=== PATIENT | male | born 1990 | race Caucasian/White ===

== ENCOUNTER 2017-02-22 12:57 | Emergency (ER) | payer OTHER ==
[2017-02-22 13:06] VITALS: BP 154/98; PULSE 70; TEMP 98.6; BMI 23.0
--- NOTE | 2017-02-22 13:12 | PDOC ---
History of Present Illness - General Chief Complaint: Pain Stated Complaint: PAIN Time Seen by Provider: 02/22/17 13:11 History Source: Patient Exam Limitations: No Limitations - History of Present Illness Initial Comments: CHIEF COMPLAINT: 27 y/o afebrile male with no significant PMH c/o b/l foot pain for the past 6 days. HISTORY OF PRESENT ILLNESS: 7 days ago the patient began the [employer] and states he has been running and training every day, which is new for him. He states the morning after the first day of training he had pain along the back of his heels. Despite the pain he continues to train and run multiple miles daily. He has been taking Advil every day and icing the areas with little relief. He now cannot walk without limping. Vital signs on arrival are within normal limits. REVIEW OF SYSTEMS: GENERAL/CONSTITUTIONAL: No fever/chills. No weakness. No weight change. HEAD, EYES, EARS, NOSE AND THROAT: No change in vision. No ear pain or discharge. No sore throat. MUSCULOSKELETAL: +b/l foot/heel pain. No neck or back pain. SKIN: No rash or easy bruising. NEUROLOGIC: No headache, vertigo, loss of consciousness, or loss of sensation. PHYSICAL EXAM: VITAL_SIGNS: within normal limits GENERAL_APPEARANCE: alert, cooperative, obvious discomfort with ambulation. MENTAL_STATUS: speech clear, oriented X 3, responds appropriately to questions. NEURO: motor intact and sensory intact in injured extremity. EXTREMITIES: good pulse in injured extremities. Full unassisted flexion, extension, inversion and eversion of b/l feet and ankles. Pain reproduced with palpation of b/l achilles tendons, approximately 4cm proximal to heels. Negative luna's test b/l. No obvious bulging of achilles tendon b/l. No erythema, edema or ecchymosis. No pain with palpation of plantar fasciitis b/ l. No calf pain, swelling, erythema, warmth. SKIN: warm, dry, good color. Past History - Past Medical History Allergies/Adverse Reactions: Allergies Allergy/AdvReac Type Severity Reaction Status Date / Time No Known Allergies Allergy Verified 02/22/17 13:01 Home Medications: Ambulatory Orders NK [No Known Home Medication] 02/22/17 Other medical history: denies - Immunization History Immunization Up to Date: Yes - Psycho/Social/Smoking Cessation Hx Suicidal Ideation: No Smoking History: Never smoked Hx Alcohol Use: No Drug/Substance Use Hx: No Substance Use Type: Alcohol *Physical Exam - Vital Signs Last Vital Signs Temp Pulse Resp BP Pulse Ox 98.6 F 70 18 154/98 96 02/22/17 13:03 02/22/17 13:03 02/22/17 13:03 02/22/17 13:03 02/22/17 13:03 Medical Decision Making - Medical Decision Making A/P: 27 y/o afebrile male with b/l achilles tendinitis with possible micro tears. Informed the patient of the diagnosis and plan. Will wrap both feet in NEVIN bandages. Instructed him to take 600mg of advil every 6 hours with food, continue icing and stretching. Informed him that he would have to avoid activities that aggravate the problem (running, etc) until he follows up with an orthopedic doctor. The patient verbalizes understanding of all instructions, has no further questions and is awaiting discharge. *DC/Admit/Observation/Transfer Diagnosis at time of Disposition: Achilles tendinitis of both lower extremities - Discharge Dispostion Disposition: HOME Condition at time of disposition: Good - Referrals Referrals: Hermes Petit MD [Staff Physician] - - Patient Instructions Printed Discharge Instructions: DI for Achilles Tendinopathy Additional Instructions: Discharge Instructions: -Stretch your feet multiple times per day -Use NEVIN bandages for support -Take 600mg of Advil every 6 hours with food -Ice the affected areas multiple times per day -Rest your feet and avoid activities that bring on the pain (running) until you are seen by an Orthopedic doctor -Return to the ER with any worsening or concerning symptoms - Post Discharge Activity Work/School Note: Back to Work
== END 2017-02-22 14:10 | disposition home or self-care (01) ==
LOC: JERFT 12:57
DX: M76.62 Achilles tendinitis, left leg (principal); M76.61 Achilles tendinitis, right leg; X58.XXXA Exposure to other specified factors, initial encounter; Y93.02 Activity, running; Y92.89 Other specified places as the place of occurrence of the external cause; Y99.0 Civilian activity done for income or pay
CPT/HCPCS: 99281-25

== ENCOUNTER 2018-08-26 07:33 | Emergency (ER) | payer BC, OTHER ==
[2018-08-26 07:49] VITALS: BP 133/70; PULSE 120; TEMP 99.9; BMI 24.0
[2018-08-26] MEDS ORDERED: IBUPROFEN 400 MG TABLET (FP) PO ONE ×2 (08:21→08:24)
--- NOTE | 2018-08-26 08:21 | PDOC ---
History of Present Illness - General Chief Complaint: Cold Symptoms Stated Complaint: FLU LIKE SYMPTOMS Time Seen by Provider: 08/26/18 08:12 History Source: Patient Exam Limitations: No Limitations - History of Present Illness Initial Comments: 08/26/18 09:28 States onset of chills and fevers yesterday, headache and runny nose. Denies sore throat, denies cough. 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 Timing/Duration: reports: getting worse Severity: reports: mild, moderate Associated Symptoms: reports: fever/chills, nasal congestion. denies: sore throat Past History - Travel Traveled outside of the country in the last 30 days: No Close contact w/someone who was outside of country & ill: No - Past Medical History Allergies/Adverse Reactions: Allergies Allergy/AdvReac Type Severity Reaction Status Date / Time No Known Allergies Allergy Verified 08/26/18 07:48 Home Medications: Ambulatory Orders Oseltamivir Phosphate [Tamiflu -] 75 mg PO BID #10 capsule 08/26/18 COPD: No - Immunization History Immunization Up to Date: Yes - Suicide/Smoking/Psychosocial Hx Smoking History: Never smoked Have you smoked in the past 12 months: No Information on smoking cessation initiated: No Hx Alcohol Use: No Drug/Substance Use Hx: No Substance Use Type: Alcohol Review of Systems - Review of Systems Able to Perform ROS?: Yes Is the patient limited Welsh proficient: Yes Constitutional: Yes: Symptoms Reported, See HPI, Chills, Fever, Loss of Appetite , Malaise, Weakness HEENTM: Yes: Symptoms Reported, See HPI, Nose Congestion, Throat Pain Respiratory: Yes: See HPI. No: Symptoms reported, Cough, Wheezing All Other Systems: Reviewed and Negative *Physical Exam - Vital Signs Last Vital Signs Temp Pulse Resp BP Pulse Ox 99.9 F H 120 H 18 133/70 100 08/26/18 07:46 08/26/18 07:46 08/26/18 07:46 08/26/18 07:46 08/26/18 07:46 - Physical Exam Comments: 08/26/18 09:30 GENERAL: [The child is awake, alert, and appropriately interactive.] EYES: [The pupils are equal, round, and reactive to light, with clear, conjunctiva.but glassy] NOSE: [The nose with clear drainage EARS: [The ear canals and tympanic membranes are congested but landmarks easily visualed ] THROAT: [The oropharynx is clear with erythema, no exudates. The mucous membranes are moist.] NECK: [The neck is supple with mildly tender adenopathy, no menigemous] CHEST: [The lungs are coarse but clear without crackles, or wheezes.] HEART: [Heart is regular rhythm, with normal S1 and S2, no murmurs.] ABDOMEN: [The abdomen is soft and nontender with normal bowel sounds. There is no organomegaly and no mass. There is no guarding or rebound.] EXTREMITIES: [Extremities are normal.] NEURO: [Behavior is normal for age.cranky but easily,m Tone is normal.] SKIN: [Skin is unremarkable without rash or swelling. There is no bruising, and there are no other signs of injury.] General Appearance: Yes: Appropriately Dressed Moderate Sedation - Procedure Monitoring Vital Signs: Procedure Monitoring Vital Signs Temperature 99.9 F H 08/26/18 07:46 Pulse Rate 120 H 08/26/18 07:46 Respiratory Rate 18 08/26/18 07:46 Blood Pressure 133/70 08/26/18 07:46 O2 Sat by Pulse Oximetry (%) 100 08/26/18 07:46 Progress Note - Progress Note Progress Note: Influenza a positive testing, will treat with Tamiflu *DC/Admit/Observation/Transfer Diagnosis at time of Disposition: Influenza A - Discharge Dispostion Disposition: HOME Condition at time of disposition: Stable Decision to Admit order: No - Prescriptions Prescriptions: Oseltamivir Phosphate [Tamiflu -] 75 mg PO BID #10 capsule - Referrals - Patient Instructions Printed Discharge Instructions: DI for Influenza -- Adult Additional Instructions: Rest, drink lots of fluids: Teas, water, soups, Pedialyte Saltwater gargles Steamy showers/seem to face break up mucus Old-fashioned treatments help! Avoid contact with others until fevers and cough resolved as this is very contagious Lots of handwashing and good hygiene Continue [id number] medications for symptomatic relief Tylenol or Motrin for fever and pain Take all of Tamiflu as directed: 1 tab every 12 hours for 5 days Followup with private physician in one to 2 days as needed or if worsening Return to emergency department for worsened symptoms, fevers, dehydration Influenza takes between 5 and 7 days for resolution To not participate in any activity, work, or school until fevers and cough are gone for at least one day - Post Discharge Activity Forms/Work/School Notes: Back to Work
== END 2018-08-26 09:09 | disposition home or self-care (01) ==
LOC: JER 07:33 → JERFT 07:33
DX: J09.X2 Influenza due to identified novel influenza A virus with other respiratory manifestations (principal)
CPT/HCPCS: 87804; 99281-25

== ENCOUNTER 2019-09-15 15:39 | Emergency (ER) | payer OTHER, BC ==
[2019-09-15 16:08] VITALS: BP 107/70; PULSE 73; TEMP 98.1; BMI 23.7
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
== END 2019-09-15 16:21 | disposition home or self-care (01) ==
LOC: JERFT 15:39
DX: Z77.21 Contact with and (suspected) exposure to potentially hazardous body fluids (principal); Y35.811A Legal intervention involving manhandling, law enforcement official injured, initial encounter; Y93.89 Activity, other specified; Y92.89 Other specified places as the place of occurrence of the external cause; Y99.0 Civilian activity done for income or pay
CPT/HCPCS: 99282-25

== ENCOUNTER 2020-03-20 11:02 | Emergency (ER) | payer BC ==
[2020-03-20 11:29] VITALS: BP 128/84; PULSE 60; TEMP 97.3; BMI 23.0
--- NOTE | 2020-03-20 11:51 | PDOC ---
History of Present Illness - General Chief Complaint: Pain, Acute Stated Complaint: LEG CRAMP Time Seen by Provider: 03/20/20 11:40 History Source: Patient Exam Limitations: No Limitations - History of Present Illness Initial Comments: 03/20/20 11:45 HISTORY OF PRESENT ILLNESS: 30-year-old male denies medical history presents emergency department for evaluation of atraumatic left calf pain starting yesterday. Patient reports he applied tiger balm instructed out pain got minimally improved but when he woke up this morning pain was just as bad if not worse than yesterday. Patient is concerned that his father had pulmonary embolism from an undiagnosed DVT and is afraid that he may have a genetic component. He denies any immobility, recent travel, hormonal use. No recent travel or sick contacts. PAST MEDICAL HISTORY: Denies past medical history SURGICAL HISTORY: Denies ALLERGIES: No known drug allergies REVIEW OF SYSTEMS General/Constitutional: Denies fever or chills. Denies weakness, weight change. HEENT: Denies change in vision. Denies ear pain or discharge. Denies sore throat. Cardiovascular: Denies chest pain or shortness of breath. Respiratory: Denies cough, wheezing, or hemoptysis. Gastrointestinal: Denies nausea, vomiting, diarrhea or constipation. Denies rectal bleeding. Genitourinary: Denies dysuria, frequency, or change in urination. Musculoskeletal: See HPI Skin and breasts: Denies rash or easy bruising. Neurologic: Denies headache, vertigo, loss of consciousness, or loss of sensation. Psychiatric: Denies depression or anxiety. Endocrine: Denies increased thirst. Denies abnormal weight change. Hematologic/Lymphatic: Denies anemia, easy bleeding, or history of blood clots. Allergic/Immunologic: Denies hives or skin allergy. Denies latex allergy. PHYSICAL EXAM General Appearance: Well-appearing, appropriately dressed. No apparent distress, no intoxication. Vascular Pulses: Dorsalis-Pedis (R): 2+, Dorsalis-Pedis (L): 2+ Musculoskeletal/Extremities: Normal inspection. FROM of all extremities, normal capillary refill. Pelvis Stable. No CVA tenderness. No tenderness to extremities, pedal edema, swelling, erythema or deformity. Integumentary: Appropriate color, dry, warm. No cyanosis, erythema, jaundice or rash Neurologic: animal scientist II-XII intact. Fully oriented, alert. Appropriate mood/affect. Motor strength 5/5. No appreciable EOM palsy, facial droop or sensory deficit. Past History - Medical History Allergies/Adverse Reactions: Allergies Allergy/AdvReac Type Severity Reaction Status Date / Time No Known Allergies Allergy Verified 03/20/20 11:23 COPD: No - Immunization History Immunization Up to Date: Yes - Psycho-Social/Smoking History Smoking History: Never smoked Have you smoked in the past 12 months: No Number of Cigarettes Smoked Daily: 1 - Substance Abuse Hx (Audit-C & DAST Scrn) How often the patient has a drink containing alcohol: Monthly or less Score: In Men: 4 or > Positive; In Women: 3 or > Positive: 1 Screen Result (Pos requires Nsg. Audit-10AR): Negative In the last yr the pt used illegal drug/Rx for NonMed reason: No Score: Yes response is considered Positive: 0 Screen Result (Positive result requires Nsg. DAST-10): Negative *Physical Exam - Vital Signs Last Vital Signs Temp Pulse Resp BP Pulse Ox 97.3 F L 60 18 128/84 98 03/20/20 11:23 03/20/20 11:23 03/20/20 11:23 03/20/20 11:23 03/20/20 11:23 ED Treatment Course - RADIOLOGY Radiology Studies Ordered: Category Date Time Status DUPLEX VASCUL US-1 LEG [US] Stat Ultrasound 03/20/20 11:44 Ordered Medical Decision Making - Medical Decision Making 03/20/20 11:47 A/P: 30-year-old male with atraumatic left calf pain for 2 days Physical exam is grossly unremarkable Possible electrolyte abnormality but given family history of thromboemboli, duplex Dopplers have been ordered. Refusing pain medication at this time Reassess 03/20/20 12:25 Duplex Do[address] read by Dr. Shi: There is no evidence of deep vein thrombosis in the left lower extremity. No Ramos's cyst is identified within the popliteal fossa. Discharge home to follow-up with his primary doctor as needed I discussed the physical exam findings, ancillary test results and final diagnoses with the patient. I answered all of the patient's questions. The patient was satisfied with the care received and felt comfortable with the discharge plan and treatment plan. The patient will call their primary care physician within 24 hours to arrange follow-up and will return to the Emergency Department with any new, persistent or worsening symptoms. Portions of this note have been documented using voice recognition software. As a result, errors may occur in the v belt inspector process. Effort has been made to correct all grammatical and v belt inspector error, but some may have been missed which may produce sporadic inaccurate v belt inspector or nonsensical phrases. Discharge - Discharge Information Problems reviewed: Yes Clinical Impression/Diagnosis: Muscle cramps Condition: Stable Disposition: HOME - Admission No - Follow up/Referral - Patient Discharge Instructions Additional Instructions: Keep well-hydrated. Drink lots of Gatorade to help replenish electrolytes. Eat a well-balanced diet. Your emergency department visit is incomplete until you follow-up with your primary doctor. Perform stretching exercises to help relieve muscle spasms and/or cramping. Return to the emergency department for any new or worsening symptoms. Thank you very much for choosing us to provide your emergent healthcare needs. - Post Discharge Activity
== END 2020-03-20 12:28 | disposition home or self-care (01) ==
LOC: JER 11:02
DX: R25.2 Cramp and spasm (principal)
CPT/HCPCS: 93971-TC; 99284-25

== ENCOUNTER 2020-10-15 16:03 | Emergency (ER) | payer OTHER ==
[2020-10-15] MEDS ORDERED: LIDOCAINE 5% TOPICAL PATCH TP ONE (16:27)
[2020-10-15] MEDS ORDERED: IBUPROFEN 600 MG TABLET (FP) PO ONE ×2 (16:27→16:30)
[2020-10-15 16:30] VITALS: BP 116/76; PULSE 80; TEMP 98.6; BMI 23.0
[2020-10-15] MEDS ORDERED: LIDOCAINE 5% TOPICAL PATCH ONE (16:30)
[2020-10-15] MEDS ORDERED: LIDOCAINE PATCH REMOVAL MC SCH (22:00)
== END 2020-10-15 16:58 | disposition home or self-care (01) ==
LOC: FER 16:03
DX: M54.5 Low back pain (principal)
CPT/HCPCS: 99283-25

== ENCOUNTER 2022-04-12 13:05 | Emergency (ER) | payer OTHER ==
[2022-04-12 13:32] VITALS: BP 114/85; PULSE 80; RESP 16; TEMP 98.9; BMI 24.4
== END 2022-04-12 14:18 | disposition home or self-care (01) ==
LOC: FER 13:05
DX: M25.562 Pain in left knee (principal)
CPT/HCPCS: 73560-TC-LT-FY; 99283-25

== ENCOUNTER 2022-08-16 17:18 | Emergency (ER) | payer OTHER, BC ==
[2022-08-16 17:30] VITALS: BP 124/76; PULSE 89; RESP 18; TEMP 98.5; BMI 24.4
[2022-08-16] MEDS ORDERED: RALTEGRAVIR POTASSIUM 400 MG TAB PO ONE (17:38)
[2022-08-16] MEDS ORDERED: EMTRICITABINE 200MG/TENOFOVIR 300MG PO ONE (17:38)
[2022-08-16] MEDS ORDERED: DIPHTH,PERTUSS(ACELL),TET 0.5 ML DISP.SYRIN IM ONE ×2 (18:00→18:08)
[2022-08-16] MEDS ORDERED: HIV POST EXPOSURE PROPHYLAXIS KIT PO ONE (18:07)
[2022-08-16 18:34] LABS: HEMATOCRIT 43.8 % (35.4-49); HEMOGLOBIN 14.9 G/dL (11.7-16.9); MCH 30.8 pg (25.7-33.7); MCHC 33.9 g/dl (32.0-35.9); MEAN CELL VOLUME 90.6 fl (80-96); MEAN PLT VOLUME 7.6 fl (7.5-11.1); PLATELET COUNT 265.8 10^3/uL (134-434); RBC 4.83 10^6/uL (4.00-5.60); RDW 13.1 % (11.9-15.9); WHITE BLOOD COUNT 5.7 10^3/uL (4.0-10.8)
[2022-08-16 18:46] LABS: BILIRUBIN,TOTAL 0.9 mg/dl (0.2-1); CALCIUM 9.2 mg/dl (8.5-10); CREATININE 0.9 mg/dl (0.55-1.3); TOT PROT 7.9 g/dl (6.4-8.2)
[2022-08-16 19:36] LABS: PLATELET ESTIMATE ADEQUATE
[2022-08-17 00:09] LABS: HIV INTERPRETATION NEGATIVE (NEGATIVE)
== END 2022-08-16 18:50 | disposition home or self-care (01) ==
LOC: FER 17:18
PROC: 3E0234Z Introduction of Serum, Toxoid and Vaccine into Muscle, Percutaneous Approach (ICD-10-PCS; principal; 2022-08-16)
DX: S61.031A Puncture wound without foreign body of right thumb without damage to nail, initial encounter (principal); Y35.831A Legal intervention involving a conducted energy device, law enforcement official injured, initial encounter
CPT/HCPCS: 36415; 80053; 85027; 86705; 86707; 86803; 87350; 87389; 87517; 90715; 99284-25

== ENCOUNTER 2023-08-21 04:01 | Day surgery (SDC) | payer BC, OTHER ==
[2023-08-20 13:50] VITALS: BMI 25.0
[2023-08-21] MEDS ORDERED: LIDOCAINE HCL/PF 1% SDV 5ML VIAL ONE (07:26)
[2023-08-21] MEDS ORDERED: BUPIVACAINE HCL/PF 0.75% 10 ML VIAL ONE ×2 (07:26→10:31)
[2023-08-21] MEDS ORDERED: ACETAMINOPHEN 500 MG TABLET (FP) PO PRN (08:32)
[2023-08-21] MEDS: BUPIVACAINE 0.75% IN DEXTROSE/PF 2ML AMPULE NR ONE (10:35)
[2023-08-21] MEDS: LIDOCAINE 1% P/F 10 MG/ML VIAL INF ONE (10:37)
[2023-08-21 11:06] VITALS: BP 122/86; PULSE 68; RESP 16; TEMP 97.7
== END 2023-08-21 11:30 | disposition home or self-care (01) ==
LOC: JASU-SURG 04:01
PROVIDERS: ATTEND Pain Medicine Pain Medicine
PROC: 3E0T33Z Introduction of Anti-inflammatory into Peripheral Nerves and Plexi, Percutaneous Approach (ICD-10-PCS; 2023-08-21)
PROC: 3E0T3BZ Introduction of Anesthetic Agent into Peripheral Nerves and Plexi, Percutaneous Approach (ICD-10-PCS; principal; 2023-08-21 10:30)
DX: M47.812 Spondylosis without myelopathy or radiculopathy, cervical region (principal)
CPT/HCPCS: 76000-TC-FY

== ENCOUNTER 2023-09-07 03:49 | Day surgery (SDC) | payer OTHER ==
[2023-09-06 08:42] VITALS: BMI 25.0
[2023-09-07] MEDS ORDERED: BUPIVACAINE HCL/PF 0.75% 10 ML VIAL ONE (07:26)
[2023-09-07] MEDS: BUPIVACAINE HCL/PF 0.75% 10 ML VIAL NR ONE (13:09)
[2023-09-07] MEDS: LIDOCAINE HCL 1% PRESERVATIVE FREE - 30ML VIAL IJ ONE (13:09)
[2023-09-07 13:27] VITALS: BP 120/76; PULSE 69; RESP 18; TEMP 97.8
== END 2023-09-07 12:45 | disposition home or self-care (01) ==
LOC: JASU-SURG 03:49
PROVIDERS: ATTEND Pain Medicine Pain Medicine
PROC: 3E0T33Z Introduction of Anti-inflammatory into Peripheral Nerves and Plexi, Percutaneous Approach (ICD-10-PCS; 2023-09-07)
PROC: 3E0T3BZ Introduction of Anesthetic Agent into Peripheral Nerves and Plexi, Percutaneous Approach (ICD-10-PCS; principal; 2023-09-07 13:45)
DX: M47.816 Spondylosis without myelopathy or radiculopathy, lumbar region (principal)
CPT/HCPCS: 76000-TC-FY

== ENCOUNTER → 2023-10-02 | Day surgery (SDC) | payer OTHER ==
[2023-09-27 09:34] VITALS: BMI 25.0
[~2023-10-02] MED LIST: ACETAMINOPHEN 500 MG TABLET (FP) PO PRN; BUPIVACAINE HCL/PF 0.75% 10 ML VIAL ONE; LIDOCAINE HCL/PF 1% SDV 5ML VIAL ONE
== END ==
LOC: JASU-SURG 05:12
PROVIDERS: ATTEND Pain Medicine Pain Medicine
DX: Z53.8 Procedure and treatment not carried out for other reasons (principal)